=== PATIENT | male | born 1980 ===

== ENCOUNTER 2020-11-21 02:58 | Emergency (ER) | payer SELFPAY ==
--- NOTE | 2020-11-21 03:35 | Event Note ---
ED Screening Note Date of service: 11/21/20 Time: 03:35 ED Screening Note: c/o acute periumbilical pain x 1 hr denies alcohol This initial assessment/diagnostic orders/clinical plan/treatment(s) is/are subject to change based on patients health status, clinical progression and re- assessment by fellow clinical providers in the ED. Further treatment and workup at subsequent clinical providers discretion. Patient/guardian urged not to elope from the ED as their condition may be serious if not clinically assessed and managed. Initial orders include: labs
[2020-11-21 04:36] LABS: Basophils % (Auto) 0.2 % (0.0-1.8); Eosinophils % (Auto) 0.3 % (0.0-4.3); Hematocrit 45.4 % (35.5-45.6); Hemoglobin 15.8 gm/dl (11.8-15.2); Lymphocytes # (Auto) 1.1 K/mm3 (1.2-5.4); Lymphocytes % (Auto) 9.5 % (13.4-35.0); Mean Corpuscular HGB Conc 35 % (32-34); Mean Corpuscular Volume 92 fl (84-94); Monocytes # (Auto) 0.5 K/mm3 (0.0-0.8); Monocytes % (Auto) 4.4 % (0.0-7.3); Platelet Count 238 K/mm3 (140-440); Red Blood Count 4.92 M/mm3 (3.65-5.03); Red Cell Distribution Width 13.3 % (13.2-15.2)
[2020-11-21 05:05] LABS: Alanine Aminotransferase 24 units/L (7-56); Albumin 4.2 g/dL (3.9-5); BUN/Creatinine Ratio 21; Blood Urea Nitrogen 17 mg/dL (9-20); Calcium 8.9 mg/dL (8.4-10.2); Hemolysis Index 20
[2020-11-21 05:18] LABS: Bacteria,Urine 1+ /HPF (Negative); Bilirubin,Urine NEG (Negative); Blood,Urine NEG (Negative); Color,Urine Yellow (Yellow); Mucus,Urine 2+ /HPF; Protein,Urine <15 mg/dL mg/dL (Negative); Urobilinogen,Urine < 2.0 mg/dL (<2.0)
[2020-11-21 06:21] VITALS: BP 115/56
[2020-11-21] MEDS ORDERED: HYDROcodone/ACETAMINOPHEN 5-325 MG TAB PO ONE (06:32)
--- NOTE | 2020-11-21 06:34 | Emergency Department Report ---
HPI - General Chief Complaint: Abdominal Pain Time Seen by Provider: 11/21/20 03:34 - HPI HPI: This is a 40-year-old male presents to the emergency department with a complaint of some middle to upper abdominal pain that has been going on since last night, around 11 PM. It is associated with one episode of nausea with vomiting. Currently his pain is about 5 out of 10 in intensity. No known aggravating or alleviating factors. He says that the abdomen feels "warm." He has not taken anything for his symptoms prior to presentation. He is a tobacco smoker but denies any illicit drug use. No recent travel or sick contacts at home. He denies any fever, diarrhea, constipation, dysuria, GI bleeding. ED Past Medical Hx - Past Medical History Previous Medical History?: No - Social History Smoking Status: Current Every Day Smoker - Medications Home Medications: Home Medications Medication Instructions Recorded Confirmed Last Taken Type Ondansetron [Zofran Odt] 4 mg PO Q8HR PRN #15 tab.rapdis 11/21/20 Unknown Rx ED Review of Systems ROS: Stated complaint: STOMACH PAIN Other details as noted in HPI Comment: All other systems reviewed and negative Constitutional: denies: chills, fever Eyes: denies: eye pain, vision change ENT: denies: ear pain, throat pain Respiratory: denies: cough, shortness of breath Cardiovascular: denies: chest pain, palpitations Gastrointestinal: abdominal pain, nausea, vomiting Genitourinary: denies: dysuria, discharge Musculoskeletal: denies: back pain, arthralgia Skin: denies: rash, lesions Neurological: denies: headache, weakness Physical Exam - Physical Exam Vital Signs: Vital Signs 11/21/20 11/21/20 03:20 06:20 Temperature 98.3 F 98.3 F Pulse Rate 87 69 Respiratory 18 16 Rate Blood Pressure 133/76 Blood Pressure 115/56 [Left] O2 Sat by Pulse 97 100 Oximetry Physical Exam: GENERAL: The patient is well-developed well-nourished. HENT: Normocephalic. Atraumatic. Patient has moist mucous membranes. EYES: Extraocular motions are intact. NECK: Supple. Trachea is midline. CHEST/LUNGS: Clear to auscultation. There is no respiratory distress noted. HEART/CARDIOVASCULAR: Regular. There is no tachycardia. There is no murmur. ABDOMEN: Abdomen is soft. There is some epigastric and right upper quadrant abdominal tenderness to palpation. Patient has normal bowel sounds. There is no abdominal distention. SKIN: Skin is warm and dry. NEURO: The patient is awake, alert, and oriented. The patient is cooperative. The patient has no focal neurologic deficits. Normal speech. MUSCULOSKELETAL: There is no tenderness or deformity. There is no limitation range of motion. ED Course Vital Signs 11/21/20 11/21/20 03:20 06:20 Temperature 98.3 F 98.3 F Pulse Rate 87 69 Respiratory 18 16 Rate Blood Pressure 133/76 Blood Pressure 115/56 [Left] O2 Sat by Pulse 97 100 Oximetry ED Medical Decision Making - Lab Data Result diagrams: 11/21/20 03:47 11/21/20 03:47 - Radiology Data Radiology results: report reviewed, image reviewed interpreted by me: Abdominal x-ray shows nonspecific nonobstructive bowel gas. No free air. Chest x-ray does not show any acute process. There are no pleural effusions, obvious pneumonia and there is no pneumothorax. No significant cardiomegaly. ULTRASOUND ABDOMEN, LIMITED (RIGHT UPPER QUADRANT) INDICATION: RUQ abd pain. COMPARISON: None available. FINDINGS: Pancreas: Visualized portion shows no significant abnormality. Liver: Normal. Gallbladder: Normal. Bile ducts: Normal. Common Bile Duct measures 2.5 mm. Free fluid: None. Additional Findings: None. IMPRESSION: Unremarkable right upper quadrant ultrasound. - Medical Decision Making This patient presents to the emergency department with a complaint of middle to upper abdominal pain, as well as some nausea with vomiting, since last night. There is some reproducible upper abdominal tenderness to palpation. However, the abdomen is soft, nondistended and nontoxic in appearance. Patient's labs have been unremarkable including CBC, metabolic panel, lipase. Abdominal ultrasound does not show any cholelithiasis, cholecystitis, pancreatitis, hepatitis, or any other acute processes. Abdominal and chest x-rays did not show any acute process. Patient's vital signs have been reassuring throughout his ED course including being afebrile. The patient was able to pass an oral challenge. He was given a dose of pain medication with improvement, if not resolution, of his pain. For all these reasons the patient appears safe for discharge home at this time. He has been instructed to follow-up with his primary care physician and has been given an outpatient follow-up for [facility]. He will return to the emergency department with any worsening of his symptoms or with any acute distress. Critical Care Time: No Critical care attestation.: If time is entered above; I have spent that time in minutes in the direct care of this critically ill patient, excluding procedure time. ED Disposition Clinical Impression: Abdominal pain Qualifiers: Abdominal location: unspecified location Qualified Code(s): R10.9 - Unspecified abdominal pain Nausea & vomiting Qualifiers: Vomiting type: unspecified Vomiting Intractability: non-intractable Qualified Code(s): R11.2 - Nausea with vomiting, unspecified Disposition: TO HOME OR SELFCARE Is pt being admited?: No Condition: Stable Instructions: Abdominal Pain, Adult, Nausea and Vomiting, Adult Additional Instructions: Please follow-up with your primary care physician in the next few days. I am giving you a referral for [facility]. Return to the emergency department with any worsening of your symptoms, new or concerning symptoms not addressed during this current emergency department visit, or with any acute distress. Prescriptions: Ondansetron [Zofran Odt] 4 mg PO Q8HR PRN #15 tab.rapdis PRN Reason: Nausea Referrals: PRIMARY CARE, [Primary Care Provider] - 2-3 Days [facility] [Provider Group] - 2-3 Days Time of Disposition: 08:18 Print Language: QATARI
--- NOTE | 2020-11-21 07:29 | Ultrasound Report ---
ULTRASOUND ABDOMEN, LIMITED (RIGHT UPPER QUADRANT) INDICATION: RUQ abd pain. COMPARISON: None available. FINDINGS: Pancreas: Visualized portion shows no significant abnormality. Liver: Normal. Gallbladder: Normal. Bile ducts: Normal. Common Bile Duct measures 2.5 mm. Free fluid: None. Additional Findings: None. IMPRESSION: Unremarkable right upper quadrant ultrasound. Signer Name: Alessandro Stephens MD Signed: 11/21/2020 7:24 AM Workstation Name: [id number]
--- NOTE | 2020-11-21 08:12 | XRay Report ---
ABDOMINAL SERIES WITH CHEST X-RAY HISTORY: Abdominal pain COMPARISON: None. FINDINGS: Supine and upright view of the abdomen demonstrate an unremarkable bowel gas pattern. No fl uid levels, dilated bowel or free air. No pathologic calcifications. AP view of the chest is within n ormal limits. No acute process is noted. Signer Name: Martin Hall Jr, MD Signed: 11/21/2020 8:08 AM Workstation Name: [id number]
== END 2020-11-21 08:41 | disposition home or self-care (01) ==
LOC: ED 02:58
DX: R10.10 Upper abdominal pain, unspecified (principal); R11.2 Nausea with vomiting, unspecified; F17.200 Nicotine dependence, unspecified, uncomplicated; Z79.899 Other long term (current) drug therapy
CPT/HCPCS: 36415; 74022; 76705; 80053; 81001; 83690; 85025